=== PATIENT | male | born 1960 | race Caucasian/White ===

== ENCOUNTER → 2017-01-27 | Outpatient (CLI) | payer OTHER ==
--- NOTE | 2017-01-27 14:09 | DIAGNOSTIC IMAGING REPORT ---
CERVICAL SPINE 2 OR 3 VIEWS HISTORY: 56 years-old Male follow-up status post anterior fusion COMPARISON: None available TECHNIQUE: 2 views of the cervical spine FINDINGS: Anterior plate and screw fusion hardware noted at the C5-C7 levels. There is no evidence of hardware complication or malalignment. There appears to be complete bony fusion of these vertebral bodies. There is no acute fracture or dislocation. Moderate intervertebral disc space narrowing with endplate spurring noted at C4-C5. Mild to moderate multilevel facet arthropathy is noted. There is no prevertebral soft tissue swelling or opaque foreign body. Imaged lung apices appear clear. Metallic plate is noted overlying the left posterior calvarium. IMPRESSION: 1. No acute bony abnormality. 2. Anterior plate and screw fusion at C5-C7 without complication. 3. Moderate intervertebral disc space narrowing with endplate spurring at C4-C5. The above report was generated using voice recognition software. It may contain grammatical, syntax or spelling errors. Electronically signed by: Bronson Hunter M.D. 01/27/2017 2:08 PM Dictated Date/Time: 01/27/2017 2:05 PM
== END ==
LOC: C.RAD 13:24
PROVIDERS: ATTEND Nurse Practitioner Adult Health
DX: M47.22 Other spondylosis with radiculopathy, cervical region (principal); Z98.1 Arthrodesis status

== ENCOUNTER 2020-06-09 15:25 | Inpatient (IN) ==
[2020-06-09] MEDS ORDERED: dilTIAZem HCl 5 MG/ML 5 ML VIAL IV STA (15:42)
[2020-06-09] MEDS ORDERED: MAGNESIUM SULFATE / D5W 1 GM/100 ML BAG IV STA (15:43)
[2020-06-09] MEDS ORDERED: THIAMINE HCL 200 MG in SODIUM CHLORIDE 0.9% 50 ML IV STA (15:44)
[2020-06-09] MEDS ORDERED: SODIUM CHLORIDE 0.9% 500 ML IV SCH (15:45)
--- NOTE | 2020-06-09 15:46 | Emergency Department Note ---
Impression & Plan Atrial fibrillation with rapid ventricular response, Heart palpitations, Anemia ED Provider Note NAME: JOHNATHAN ROBERSON AGE: 60 SEX: M : 1960 ARRIVES VIA: Walk-In INFORMANT: Patient, ED PROVIDER(S): Isidro Almaguer DO CHIEF COMPLAINT: Palpitations HPI: The patient is a 60-year-old male who has a history of paroxysmal atrial fibrillation who presented to the emergency department for an evaluation of palpitations. The patient had palpitations once a few years ago. He was found to have atrial fibrillation. At that time he was cardioverted and did very well. He is not currently on any blood thinners. The patient has been having symptoms over the course of the last few weeks where he is very short of breath with exertion. He also has been noticing some lower extremity edema as well as palpitations. He went to see his primary care physician today for an evaluation and was found to be in atrial fibrillation. He was referred to the emergency department. He states symptoms are worsened with exertion as well as lying flat. He does note some improvement of his symptoms with rest. He denies having any recent traveling. He denies having any black or bloody bowel movements. Patient does have a history of chronic alcohol use. ROS: See above HPI for pertinent positives & negatives. A total of 10 systems reviewed and were otherwise negative. PAST MEDICAL HISTORY: See Below PAST SURGICAL HISTORY: See Below FAMILY HISTORY: See Below SOCIAL HISTORY: See Below HOME MEDICATIONS: See Below ALLERGIES: See Below VITALS: See Below PHYSICAL EXAMINATION: GENERAL: Patient is awake alert in no acute distress patient is resting comfortably and showing no signs of anxiety EYES: The conjunctivae are clear. The pupils are round and reactive. EARS, NOSE, MOUTH AND THROAT: The nose is without any evidence of any deformity. Mucous membranes are moist. Tongue is midline. NECK: The neck is nontender and supple. RESPIRATORY: Normal respiratory effort is noted there is no evidence of wheezing rhonchi or rales CARDIOVASCULAR: Tachycardic and irregular heart sounds were noted to auscul tation. No definite murmur was noted. GASTROINTESTINAL: The abdomen is soft. Abdomen is nontender. MUSCULOSKELETAL/EXTREMITIES: There is no evidence of gross deformity full range of motion is noted in the hips and shoulders. SKIN: Trace pedal edema was noted. Skin was cool and diaphoretic. NEUROLOGIC: Patient is awake alert and oriented x3. MEDICAL DECISION MAKING: The patient is a 60-year-old male who has a history of paroxysmal atrial fibrillation as well as chronic alcohol use who presented to the emergency department for palpitations. He was seen his primary care physician's office and diagnosed with atrial fibrillation. He was treated with IV fluids and IV Cardizem in the emergency department. The heart rate significantly improved as well as the patient's symptoms. He is currently not taking blood thinners as he is only had one episode of atrial fibrillation in the past. I discussed the patient's condition with the on-call [facility] hospitalist group. They have agreed to evaluate the patient in the emergency department for further management and disposition. The patient was agreeable to this plan. Triage Nursing notes reviewed. Prior medical records reviewed Vital Signs: reviewed and remarkable for tachycardia. Differential diagnosis: Premature contractions, electrolyte abnormality, cardiac dysrhythmia, thyroid dysfunction, pulmonary embolism, infection, gastrointestinal, as well as other pathologies. ER treatment provided: See below Diagnostics interpreted by me: ECG: EKG was obtained in the emergency department. Interpretation is atrial fibrillation at 81 bpm. There were no PVCs noted. Peak T waves were noted. No previous tracing was available for comparison. Cardiac Monitoring: An order was placed for continuous cardiac monitoring. The monitor shows a rate of 89 bpm with atrial fibrillation rhythm. Laboratory studies: As stated above and show below. Imaging studies: See below Consultation(s): 1755: I discussed this case with the [facility] Hospitalist group. They have agreed to evaluate the patient in the emergency department for further management and disposition. Past Med/Surg History Medical History ASD (atrial septal defect) Asthma Atrial fibrillation Chronic sinusitis DDD (degenerative disc disease) Fibromyalgia Hypertension Post laminectomy syndrome Surgical History History of fusion of cervical spine History of laminectomy History of lumbar fusion 2002, l3-l5 fusion @ [facility] 2004; revision l1-s1 2016; L5-S1 hardware removal and lami 06/2017, History of sinus surgery Hx of tonsillectomy Family History Father Myocardial infarction, Onset Age: 70 Mother Myocardial infarction, Onset Age: 78 Social History (Updated 06/09/20 @ 15:44 by Isidro Almaguer DO) Smoking Status: Former smoker Hx Alcohol Use: Yes Alcohol type: beer and hard liquor Alcohol Intake Frequenc y: 4 or More x per/Week Preferred Language: Pashto Feels Safe at Home: Yes Allergies Allergies Allergy/AdvReac Type Severity Reaction Status Date / Time adhesive tape Allergy Unknown Rash/Bliste Verified 06/09/20 17:38 rs atorvastatin AdvReac Unknown Cramping/We Verified 06/09/20 17:38 akness heparin AdvReac Unknown Hypotension Verified 06/09/20 17:38 Home Meds Home Medications Medication Instructions Recorded Confirmed albuterol sulfate 2 puff INHALATION Q6H PRN 06/09/20 06/09/20 betamethasone dipropionate 1 applic TOPICAL BID PRN 06/09/20 06/09/20 budesonide 0.5 mg IRRIGATION DAILY 06/09/20 06/09/20 esomeprazole magnesium 20 mg PO DAILY 06/09/20 06/09/20 levofloxacin 500 mg PO DAILY 06/09/20 06/09/20 lidocaine 3 patch TOPICAL DIRECTED 06/09/20 06/09/20 lisinopril 10 mg PO QAM 06/09/20 06/09/20 metoprolol tartrate 12.5 mg PO QAM 06/09/20 06/09/20 metronidazole [Metrogel] 1 applic TOPICAL BID PRN 06/09/20 06/09/20 milnacipran [Savella] 100 mg PO HS 06/09/20 06/09/20 [id number] 1 tab PO QAM 06/09/20 06/09/20 [Multivitamin 50 Plus] olopatadine 1 drp OPB BID 06/09/20 06/09/20 omega-3 fatty acids [Fish Oil] 1,000 mg PO QPM 06/09/20 06/09/20 oxycodone 15 mg PO Q4H PRN 06/09/20 06/09/20 prednisone See Rx Instructions .ROUTE .COMPLEX 06/09/20 06/09/20 pregabalin [Lyrica] 150 mg PO DAILY 06/09/20 06/09/20 pregabalin [Lyrica] 300 mg PO PM 06/09/20 06/09/20 Results & Data (ED) Vital Signs Vital Signs - 24 hr 06/09/20 15:31 06/09/20 16:03 06/09/20 16:09 Temperature 36.5 C Temperature Source Oral Pulse Rate 75 Pulse Rate [Apical] 104 H Pulse Rhythm Regular Pulse Strength Normal Respiratory Rate 16 16 Respiratory Effort / Characteristics Non-Labored Non-Labored Respiratory Depth Normal Normal Respiratory Pattern Regular Regular Blood Pressure 184/82 H Blood Pressure [Right Arm] 133/81 Blood Pressure Mean 116 Blood Pressure Mean [Right Arm] 98 Blood Pressure Position Sitting Blood Pressure Position [Right Arm] Lying Pulse Oximetry 100 98 98 Oxygen Delivery Method Room Air Room Air Room Air Sepsis Recent Fever Within 48 Hours No Sepsis New/Unexplained Change in Mental Status N/A Sepsis Action Taken by Nursing No Action Required Home Medications Current Medication List: was personally reviewed by me Laboratory Data Attestation: I reviewed the patient's lab results. Result diagrams: 06/09/20 15:50 06/09/20 15:50 Lab Results 06/09/20 06/09/20 06/09/20 Range/Units 15:50 15:50 15:50 WBC 9.65 (4.8-10.8) K/uL RBC 4.67 L (4.7-6.1) M/uL Hgb 9.8 L (14.0-18.0) g/dL Hct 32.5 L (42-52) % MCV 69.6 L (80-100) fL MCH 21.0 L (25-34) pg MCHC 30.2 L (32-36) g/dL RDW Std Deviation 49.3 H (36.4-46.3) fL RDW Coeff of Stanley 19.6 H (11.5-14.5) % Plt Count 516 H (130-400) K/uL MPV 9.7 (7.4-10.4) fL Immature Gran % (Auto) 0.8 % Neut % (Auto) 89.0 % Lymph % (Auto) 6.7 % [place] % (Auto) 3.4 % Eos % (Auto) 0.0 % Baso % (Auto) 0.1 % Neut # (Auto) 8.58 H (1.4-6.5) K/uL Lymph # (Auto) 0.65 L (1.2-3.4) K/uL [place]hel # (Auto) 0.33 (0.11-0.59) K/uL Eos # (Auto) 0.00 (0-0.5) K/uL Baso # (Auto) 0.01 (0-0.2) K/uL Immature Gran # (Auto) 0.08 H (0.00-0.02) K/uL Microcytosis Present Ovalocytes 1+ PT 11.5 (9.0-12.0) Seconds INR 1.1 (0.9-1.1) APTT 27.9 (21.0-31.0) Seconds PTT Ratio 1.0 Sodium 134 L (136-145) mmol/L Potassium 4.4 (3.5-5.1) mmol/L Chloride 101 (98-107) mmol/L Carbon Dioxide 28 (21-32) mmol/L Anion Gap 5.0 (3-11) BUN 19 H (7-18) mg/dl Creatinine 0.81 (0.6-1.4) mg/dl Est Cr Clr Drug Dosing 104.0 ml/min Est GFR ( Amer) 111.2 Est GFR (Non-Af Amer) 95.9 BUN/Creatinine Ratio 23.5 H (10-20) Glucose 141 H (70-99) mg/dl Calcium 9.6 (8.5-10.1) mg/dl Magnesium 2.2 (1.8-2.4) mg/dl Total Bilirubin 0.2 (0.2-1) mg/dl AST 23 (15-37) U/L ALT 28 (12-78) U/L Alkaline Phosphatase 140 H (45-117) U/L Troponin I < 0.015 (0-0.045) ng/ml Total Protein 8.4 H (6.4-8.2) gm/dl Albumin 3.1 L (3.4-5.0) gm/dl Globulin 5.3 H (2.5-4.0) gm/dl Albumin/Globulin Ratio 0.6 L (0.9-2) TSH 0.166 L (0.300-4.500) uIu/ml Free T4 1.09 (0.8-1.6) ng/dl Urine Color Urine Appearance (Clear) Urine pH (4.5-7.5) Ur Specific [place] (1.000-1.030) Urine Protein (Negative) Urine Glucose (UA) (Negative) Urine Ketones (Negative) Urine Blood (Negative) Urine Nitrite (Negative) Urine Bilirubin (Negative) Urine Urobilinogen (Negative) Ur Leukocyte Esterase (Negative) COVID-19 Eval Order SARS-CoV-2, RNA, NAAT (NEGATIVE) 06/09/20 06/09/20 06/09/20 Range/Units 16:08 16:08 16:37 WBC (4.8-10.8) K/uL RBC (4.7-6.1) M/uL Hgb (14.0-18.0) g/dL Hct (42-52) % MCV (80-100) fL MCH (25-34) pg MCHC (32-36) g/dL RDW Std Deviation (36.4-46.3) fL RDW Coeff of Stanley (11.5-14.5) % Plt Count (130-400) K/uL MPV (7.4-10.4) fL Immature Gran % (Auto) % Neut % (Auto) % Lymph % (Auto) % [place] % (Auto) % Eos % (Auto) % Baso % (Auto) % Neut # (Auto) (1.4-6.5) K/uL Lymph # (Auto) (1.2-3.4) K/uL Bethel # (Auto) (0.11-0.59) K/uL Eos # (Auto) (0-0.5) K/uL Baso # (Auto) (0-0.2) K/uL Immature Gran # (Auto) (0.00-0.02) K/uL Microcytosis Ovalocytes PT (9.0-12.0) Seconds INR (0.9-1.1) APTT (21.0-31.0) Seconds PTT Ratio Sodium (136-145) mmol/L Potassium (3.5-5.1) mmol/L Chloride (98-107) mmol/L Carbon Dioxide (21-32) mmol/L Anion Gap (3-11) BUN (7-18) mg/dl Creatinine (0.6-1.4) mg/dl Est Cr Clr Drug Dosing ml/min Est GFR ( Amer) Est GFR (Non-Af Amer) BUN/Creatinine Ratio (10-20) Glucose (70-99) mg/dl Calcium (8.5-10.1) mg/dl Magnesium (1.8-2.4) mg/dl Total Bilirubin (0.2-1) mg/dl AST (15-37) U/L ALT (12-78) U/L Alkaline Phosphatase (45-117) U/L Troponin I (0-0.045) ng/ml Total Protein (6.4-8.2) gm/dl Albumin (3.4-5.0) gm/dl Globulin (2.5-4.0) gm/dl Albumin/Globulin Ratio (0.9-2) TSH (0.300-4.500) uIu/ml Free T4 (0.8-1.6) ng/dl Urine Color Yellow Urine Appearance Clear (Clear) Urine pH 5.5 (4.5-7.5) Ur Specific [place] 1.014 (1.000-1.030) Urine Protein Negative (Negative) Urine Glucose (UA) Negative (Negative) Urine Ketones Negative (Negative) Urine Blood Negative (Negative) Urine Nitrite Negative (Negative) Urine Bilirubin Negative (Negative) Urine Urobilinogen Negative (Negative) Ur Leukocyte Esterase Negative (Negative) COVID-19 Eval Order Covid19 IDNow [facility] SARS-CoV-2, RNA, NAAT NEGATIVE (NEGATIVE) Administered Medications Discontinued Medications Diltiazem HCl (Diltiazem Hcl 5 Mg/Ml 5 Ml Vial) 10 mg IV NOW STA Stop: 06/09/20 15:43 Last Admin: 06/09/20 15:56 Dose: 10 mg Documented by: [id number] Cosigned by: [id number] Sodium Chloride (Nss) 500 mls @ 999 mls/hr IV .Q31M TEZ Stop: 06/09/20 16:15 Last Admin: 06/09/20 15:57 Dose: 999 mls/hr Documented by: [id number] Magnesium Sulfate/Dextrose (Magnesium Sulfate / D5w) 1 gm in 100 mls @ 100 mls/hr IV NOW STA Stop: 06/09/20 16:42 Last Admin: 06/09/20 15:57 Dose: 100 mls/hr Documented by: [id number] Thiamine HCl 200 mg/ Sodium (Chloride) 52 mls @ 208 mls/hr IV NOW STA Stop: 06/09/20 15:58 Last Admin: 06/09/20 15:57 Dose: 208 mls/hr Documented by: [id number] Imaging Data Radiologist's Impression: Patient: JOHNATHAN ROBERSON Admit Date: 06/09/20 MR#: [id number] Address1: [address] [place] [address] Acct ID:[id number] Address2: Date: 1960 [facility] Zip: [place] [address] Age: 60 Location: ED Sex: M Room/Bed: Att Phy: Diagnosis: ATRIAL FLUTTER Lucia Phy: Johnathan Street MD Service Date: 06/09/20 Fam Phy: Interpreting Phy: Bal Hernandez MD Admit Phy: Ordering Phy: Isidro Almaguer, DO cc: ~ XR chest 1V portable HISTORY: weakness COMPARISON: None. FINDINGS: No pneumothorax. No pleural effusions. The cardiac silhouette is top normal in size. Thoracolumbar spine and cervical spinal fusion hardware is noted. Hazy appearance to the left upper to midlung zone and right lung base. This may represent a viral pneumonitis. There is mild interstitial thickening. IMPRESSION: Mild hazy appearance to the left upper to midlung zone and right lung base. This may represent a viral pneumonitis. ACT 112: Negative or not required by law. Electronically signed by: Bal Hernandez M.D. 06/09/2020 4:34 PM Dictated: 06/09/20 1633 Transcribed: 06/09/20 1633 Blood Pressure Blood Pressure Findings: Normal blood pressure Discharge Plan Visit Data Chief Complaint: Arrhythmia/Palpitations Stated Complaint: ATRIAL FLUTTER ED Provider: Isidro Almaguer Discharge Problem: Atrial fibrillation with rapid ventricular response, Heart palpitations, Anemia Forms Stand Alone Forms: My [employer] Prescriptions Prescriptions: No Action prednisone 20 mg tablet See Rx Instructions .ROUTE .COMPLEX RF: 0 oxycodone 15 mg tablet 15 mg PO Q4H PRN (Reason: Pain) RF: 0 levofloxacin 500 mg tablet 500 mg PO DAILY RF: 0 metoprolol tartrate 25 mg tablet 12.5 mg PO QAM RF: 0 pregabalin [Lyrica] 150 mg capsule 150 mg PO DAILY RF: 0 Savella 50 mg tablet 100 mg PO HS RF: 0 lisinopril 20 mg tablet 10 mg PO QAM RF: 0 olopatadine 0.1 % drops 1 drp OPB BID RF: 0 lidocaine 5 % adhesive patch,medicated 3 patch topical DIRECTED RF: 0 budesonide 0.5 mg/2 mL suspension for nebulization 0.5 mg irrigation DAILY RF: 0 betamethasone dipropionate 0.05 % cream 1 applic TOPICAL BID PRN (Reason: Rosacea) RF: 0 albuterol sulfate 90 mcg/actuation HFA aerosol inhaler 2 puff INHALATION Q6H PRN (Reason: Cough/Wheezing) RF: 0 metronidazole [Metrogel] 0.75 % Gel 1 applic TOPICAL BID PRN (Reason: Rosacea) RF: 0 Multivitamin 50 Plus Tablet 1 tab PO QAM RF: 0 Fish Oil Capsule 1,000 mg PO QPM RF: 0 esomeprazole magnesium [address] For Susp In Packet 20 mg PO DAILY RF: 0 pregabalin [Lyrica] 150 mg Capsule 300 mg PO PM RF: 0 Referrals Referrals: Johnathan Street MD [Primary Care Provider] -
[2020-06-09 16:06] LABS: Basophils # (auto) 0.01 K/uL (0-0.2); Basophils % (auto) 0.1 %; Hematocrit (blood only) 32.5 % (42-52); Hemoglobin 9.8 g/dL (14.0-18.0); Immature Granulocytes # (auto) 0.08 K/uL (0.00-0.02); Immature Granulocytes % (auto) 0.8 %; Lymphocytes # (auto) 0.65 K/uL (1.2-3.4); Lymphocytes % (auto) 6.7 %; Mean Corpuscular Hgb Conc 30.2 g/dL (32-36); Mean Corpuscular Volume 69.6 fL (80-100); Mean Platelet Volume 9.7 fL (7.4-10.4); Monocytes # (auto) 0.33 K/uL (0.11-0.59); Monocytes % (auto) 3.4 %; Neutrophils # (auto) 8.58 K/uL (1.4-6.5); Platelet Count 516 K/uL (130-400); RDW Coefficient of Variation 19.6 % (11.5-14.5); RDW Standard Deviation 49.3 fL (36.4-46.3); Red Blood Count 4.67 M/uL (4.7-6.1); White Blood Count 9.65 K/uL (4.8-10.8)
[2020-06-09 16:27] LABS: INR 1.1 (0.9-1.1); Partial Thromboplastin Time 27.9 Seconds (21.0-31.0); Prothrombin Time 11.5 Seconds (9.0-12.0)
[2020-06-09 16:31] LABS: Microcytosis Present; Ovalocytes 1+
[2020-06-09 16:34] LABS: Alanine Aminotransferase 28 U/L (12-78); Albumin Level 3.1 gm/dl (3.4-5.0); Aspartate Aminotransferase 23 U/L (15-37); BUN Creatinine Ratio 23.5 (10-20); Blood Urea Nitrogen 19 mg/dl (7-18); Calcium 9.6 mg/dl (8.5-10.1); Carbon Dioxide 28 mmol/L (21-32); Chloride 101 mmol/L (98-107); Est GFR (African American) 111.2; Est GFR (Non-African American) 95.9; Glucose 141 mg/dl (70-99); Magnesium 2.2 mg/dl (1.8-2.4); Potassium 4.4 mmol/L (3.5-5.1); Sodium 134 mmol/L (136-145)
--- NOTE | 2020-06-09 16:34 | Electrocardiogram Report ---
Test Reason : Blood Pressure : / mmHG Vent. Rate : 081 BPM Atrial Rate : 375 BPM P-R Int : 000 ms QRS Dur : 088 ms QT Int : 324 ms P-R-T Axes : 000 083 006 degrees QTc Int : 376 ms Poor data quality, interpretation may be adversely affected Probable Sinus rhythm (regular rhythm with baseline artifact) Abnormal ECG No previous ECGs available Repeat tracing recommended Confirmed by Diaz Garcia ([id number]) on 06/09/2020 4:33:50 PM Referred By: Confirmed By:Diaz Garcia
--- NOTE | 2020-06-09 16:35 | XRay Report ---
XR chest 1V portable HISTORY: weakness COMPARISON: None. FINDINGS: No pneumothorax. No pleural effusions. The cardiac silhouette is top normal in size. Thorac olumbar spine and cervical spinal fusion hardware is noted. Hazy appearance to the left upper to midl ed zone and right lung base. This may represent a viral pneumonitis. There is mild interstitial thic kening. IMPRESSION: Mild hazy appearance to the left upper to midlung zone and right lung base. This may represent a jyoti l pneumonitis. ACT 112: Negative or not required by law. Electronically signed by: Bal Hernandez M.D. 06/09/2020 4:34 PM
[2020-06-09 16:45] LABS: Albumin Globulin Ratio 0.6 (0.9-2); Alkaline Phosphatase 140 U/L (45-117); Bilirubin,Total 0.2 mg/dl (0.2-1); Globulin 5.3 gm/dl (2.5-4.0); Thyroid Stimulating Hormone 0.166 uIu/ml (0.300-4.500); Total Protein 8.4 gm/dl (6.4-8.2); Troponin I < 0.015 ng/ml (0-0.045)
[2020-06-09 17:00] LABS: T4 Free Thyroxine 1.09 ng/dl (0.8-1.6)
[2020-06-09 17:02] LABS: Appearance Urine Clear (Clear); Bilirubin Urine Negative (Negative); Blood Urine Negative (Negative); Color Urine Yellow; Glucose Urine UA Negative (Negative); Ketones Urine Negative (Negative); Leukocyte Esterase Urine Negative (Negative); Nitrite Urine Negative (Negative); Protein Urine Negative (Negative); Specific Gravity Urine 1.014 (1.000-1.030); Urobilinogen Urine Negative (Negative); pH Urine 5.5 (4.5-7.5)
--- NOTE | 2020-06-09 17:54 | History & Physical Report ---
Date of Service June 09, 2020 Assessment & Plan (1) Atrial fibrillation with rapid ventricular response: (2) Anemia: (3) Hypertension: (4) Alcohol abuse: (5) Recurrent sinusitis: (6) DVT prophylaxis: This is a 60-year-old male who has significant past medical history of HTN, ASD, asthma, fibromyalgia, post laminectomy syndrome, history of A. fib 10 years prior requiring DCCV and anticoagulation x1 year, recurrent sinusitis who presents to ED secondary to dyspnea on exertion x3 weeks. In ED patient was found to be in atrial fibrillation. He received 10 mg of IV diltiazem with improvement in heart rate. During my evaluation he was mostly in the 80s to 90s -and actually sinus rhythm; however he did have approximately 10 to 20 seconds of atrial fibrillation in the 120s.He is going in an out of afib. Evaluation reveals a microcytic hypochromic anemia with an H&H of 9.8 and 32.5. He denies any signs or symptoms of bleeding. Prior hemoglobin in 2019 was 14.1. He does have significant history of alcoholism with 5 alcoholic beverages daily. Also has been suffering from recurrent sinusitis since February. He has been on 3 different antibiotics and is currently on Levaquin and an additional prednisone taper. Lastly TSH is mildly low at 0.166 but normal free T4 1.09 Chest x-ray abnormal showing hazy bilateral opacities. He has had 3 - Covid test. Patient has multiple possibilities for PAF including recurrent sinusitis with multiple antibiotic and prednisone therapies, alcohol abuse, hyperthyroid and questionable lung opacities Admit to PCU increase metoprolol tartrate to 12.5 mg 3 times daily Start IV heparin gtt given acuity of afib- chadsvasc0 obtain echocardiogram, consult cardiology obtain CT Chest and CT sinus continue levaquin and prednisone to complete current course - await CT sinus but pt will need outpt ENT referral Anemia work up - iron, ferritin, TIBC, tsat, b12, folic acid - last cscope 07/2019 - internal hemorrhoids AWSS protocol, prn IV ativan, monitor for s/sx of withdrawal will keep pt under covid isolation despite negative test given URI sx and ? hazy opacity on xray - await further testing, no known + covid contacts Full CODE Follow up Dr. Street up on discharge Pt was seen and examined in collaboration with Dr. Nuñez, please see addendum History of Present Illness Chief Complaint: ALMEIDA x 3 weeks. Primary Care Provider: Johnathan Street MD This is a 60-year-old male who has significant past medical history of HTN, ASD, asthma, fibromyalgia, post laminectomy syndrome, history of A. fib 10 years prior requiring DCCV and anticoagulation x1 year, recurrent sinusitis who presents to ED secondary to dyspnea on exertion x3 weeks. Of significance patient has been suffering from recurrent sinusitis since early February. He has been on multiple antibiotics including Levaquin x2 and Biaxin. He is currently on his second course of Levaquin day 2. He is also on his second round of prednisone. He complains of recurrent sinus congestion with purulent drainage with occasional scant blood, facial pain and pressure, postnasal drip, occasional cough secondary to drainage and ALMEIDA. Initially he attributed shortness of breath to nasal drainage. Shortness of breath started right around [place] when he would exert himself specifically with stairs. He would like himself extremely short of breath. He has been monitoring his heart rate and oxygen at home and noticed his oxygen to be low 90s and heart rate at times in 150s. He has been Covid screen x2 as outpatient which was negative. He denies any fever, chills, sweats, lightheadedness, dizziness, syncope, chest pain, palpitations, nausea, vomiting, abdominal pain, melena, hematochezia, diarrhea, dysuria, increased urgency or frequency with urination. He is not established with a pneumatic riveter in the area. He follows with cardiology down near [place]. He states he has not had a recurrence of atrial fibrillation therefore did not feel the need. Of significance he does suffer from alcoholism. He drinks 2 [place] mules and 3 light beers daily. He was seen and evaluated in clinic today for follow-up regarding shortness of breath and sinusitis. His heart rhythm was found to be irregular and he was referred to ED. Allergies Allergy/AdvReac Type Severity Reaction Status Date / Time adhesive tape Allergy Unknown Rash/Bliste Verified 06/09/20 17:38 rs atorvastatin AdvReac Unknown Cramping/We Verified 06/09/20 17:38 akness heparin AdvReac Unknown Hypotension Verified 06/09/20 17:38 Home Medications Medication Instructions Recorded Confirmed Type albuterol sulfate 2 puff INHALATION Q6H PRN 06/09/20 06/09/20 History betamethasone dipropionate 1 applic TOPICAL BID PRN 06/09/20 06/09/20 History budesonide 0.5 mg IRRIGATION DAILY 06/09/20 06/09/20 History esomeprazole magnesium 20 mg PO DAILY 06/09/20 06/09/20 History levofloxacin 500 mg PO DAILY 06/09/20 06/09/20 History lidocaine 3 patch TOPICAL DIRECTED 06/09/20 06/09/20 History lisinopril 10 mg PO QAM 06/09/20 06/09/20 History metoprolol tartrate 12.5 mg PO QAM 06/09/20 06/09/20 History metronidazole [Metrogel] 1 applic TOPICAL BID PRN 06/09/20 06/09/20 History milnacipran [Savella] 100 mg PO HS 06/09/20 06/09/20 History stjekbkbeiuh-tsyttuaz-fxuwua 1 tab PO QAM 06/09/20 06/09/20 History [Multivitamin 50 Plus] olopatadine 1 drp OPB BID 06/09/20 06/09/20 History omega-3 fatty acids [Fish Oil] 1,000 mg PO QPM 06/09/20 06/09/20 History oxycodone 15 mg PO Q4H PRN 06/09/20 06/09/20 History prednisone See Rx Instructions .ROUTE .COMPLEX 06/09/20 06/09/20 History pregabalin [Lyrica] 150 mg PO DAILY 06/09/20 06/09/20 History pregabalin [Lyrica] 300 mg PO PM 06/09/20 06/09/20 History Past Med/Surg History Medical History ASD (atrial septal defect) Asthma Atrial fibrillation Chronic sinusitis DDD (degenerative disc disease) Fibromyalgia Hypertension Post laminectomy syndrome Surgical History History of fusion of cervical spine History of laminectomy History of lumbar fusion 2002, l3-l5 fusion @ [facility] 2004; revision l1-s1 2016; L5-S1 hardware removal and lami 06/2017, History of sinus surgery Hx of tonsillectomy Family History Father Myocardial infarction, Onset Age: 70 Mother Myocardial infarction, Onset Age: 78 Social History (Updated 06/09/20 @ 18:57 by Vera Mast PA-C) Smoking Status: Former smoker Do You Dip or Chew Tobacco: No; Hx Alcohol Use: Yes Alcohol type: beer and hard liquor Alcohol Intake Frequency: 4 or More x per/Week Alcohol Intake Frequency Comment: daily alcohol consumption Hx Substance Use: No Preferred Language: Dominican Communication Ability: Effective Beliefs That Will Affect Care: None marital status: Current Living Situation: Spouse Feels Safe at Home: Yes Assistive Devices: Glasses Review of Systems Review of Systems: All systems reviewed & are unremarkable except as noted in HPI & below Physical Exam Physical Exam: Constitutional: WD/WN, vitals as above, NAD, sitting up in bed, pleasant, conversing easily Head: Normocephalic, Atraumatic Eyes: PERRL, conjunctivae normal, anicteric sclerae ENMT: external ear and nose normal, oropharynx normal Neck: trachea midline, no thyromegaly normal visual inspection Respiratory: normal respiratory effort, lungs clear to auscultation, no wheeze, rales, rhonchi. Normal insp/exp effort, no accessory muscle use Cardiovascular: RRR, no murmur, no edema Vessels: no JVD or carotid bruit Chest: normal inspection of chest Abdomen: normal bowel sounds, soft, nontender, no hepatosplenomegaly Musculoskeletal: no cyanosis or clubbing, extremities motor strength 5/5 Skin: no rashes, warm and dry normal turgor Neurologic: PERRL, EOMI, accommodation nl, no face palsy, no dysarthria CN's II-XI intact bilaterally and moves all extremities Psychiatric: A+Ox3, euthymic affect Lymphatic: no cervical or axillary lymphadenopathy : deferred Results & Data Results & Data ([facility]) Vital Signs (Past 12 Hours) Vital Signs Temp Pulse Pulse Resp BP BP Pulse Ox 06/09/20 16:09 104 H 16 133/81 98 06/09/20 16:03 98 06/09/20 15:31 36.5 C 75 16 184/82 H 100 Laboratory Results Short CBC 06/09/20 Range/Units 15:50 WBC 9.65 (4.8-10.8) K/uL Hgb 9.8 L (14.0-18.0) g/dL Hct 32.5 L (42-52) % Plt Count 516 H (130-400) K/uL BMP 06/09/20 15:50 Sodium 134 L Potassium 4.4 Chloride 101 Carbon Dioxide 28 BUN 19 H Creatinine 0.81 Glucose 141 H Calcium 9.6 Cardiac Enzymes 06/09/20 Range/Units 15:50 Troponin I < 0.015 (0-0.045) ng/ml Liver Function 06/09/20 Range/Units 15:50 Total Bilirubin 0.2 (0.2-1) mg/dl AST 23 (15-37) U/L ALT 28 (12-78) U/L Alkaline Phosphatase 140 H (45-117) U/L Albumin 3.1 L (3.4-5.0) gm/dl Urine 06/09/20 Range/Units 16:37 Urine Color Yellow Urine Appearance Clear (Clear) Urine pH 5.5 (4.5-7.5) Ur Specific Bradley 1.014 (1.000-1.030) Urine Protein Negative (Negative) Urine Glucose (UA) Negative (Negative) Diagnostic Findings CXR: IMPRESSION: Mild hazy appearance to the left upper to midlung zone and right lung base. This may represent a viral pneumonitis. Medications Administered Discontinued Medications Diltiazem HCl (Diltiazem Hcl 5 Mg/Ml 5 Ml Vial) 10 mg IV NOW STA Stop: 06/09/20 15:43 Last Admin: 06/09/20 15:56 Dose: 10 mg Documented by: [id number] Cosigned by: [id number] Sodium Chloride (Nss) 500 mls @ 999 mls/hr IV .Q31M TEZ Stop: 06/09/20 16:15 Last Admin: 06/09/20 15:57 Dose: 999 mls/hr Documented by: [id number] Magnesium Sulfate/Dextrose (Magnesium Sulfate / D5w) 1 gm in 100 mls @ 100 mls/hr IV NOW STA Stop: 06/09/20 16:42 Last Admin: 06/09/20 15:57 Dose: 100 mls/hr Documented by: [id number] Thiamine HCl 200 mg/ Sodium (Chloride) 52 mls @ 208 mls/hr IV NOW STA Stop: 06/09/20 15:58 Last Admin: 06/09/20 15:57 Dose: 208 mls/hr Documented by: [id number] ECG Rate (beats per minute): 81 Rhythm: atrial flutter Code Status & VTE Plan Code Status Full Code VTE Prophylaxis Plan VTE Prophylaxis will be ordered: No Supervising Physician Co-Signing Physician Notes I have seen and examined the patient and have discussed the case with the provider above. I agree with the assessment and plan as stated. The patient is a 60 yo M with a h/o of lone atrial flutter not on anticoagulation with a small ostium secundum ASD not significant on catheterization in 2011 who presents with new onset atrial fibrillation with RVR. He is endorsing two months of worsening dyspnea on exertion consistent with possible atrial fibrillation, however, he also recently reports persistent sinus congestion with purulent drainage with occasional scant blood, facial pain and pressure, postnasal drip, cough and low grade fevers. Chest CT findings are concerning for a pneumonitis or viral pneumonia that is multifocal. He is being admitted during a high activity period of the novel coronavirus pandemic and is being kept on isolation out of an abundance of caution. However, he does report a h/o an aspiration pneumonitis in the past from severe reflux, and he thinks it is possible this may be the case again after eating some spicy food this week. He has not been vomiting and denies any kash episodes of aspiration. Cont Levaquin and prednisone for recent sinus treatment (started two days ago). Rate is improved after diltiazem given in the ER, agree with beta kvng adjustment pending further cardiology recommendations. Heparin drip started. Agree with anemia workup, of note patient is s/p bariatric surgery in Feb 2013. Physical exam is unremarkable aside for an irregular heart rhythm on auscultation, reg rate, S1/2 heard without murmurs, gallops or rubs. Lungs are clear to auscultation. No evidence of edema and he appears euvolemic and is oriented and cooperative. Franny hedrick DO (1) Anemia Anemia type: unspecified type Qualified Code(s): D64.9 - Anemia, unspecified
--- NOTE | 2020-06-09 19:57 | CT Scan Report ---
CT sinus wo con HISTORY: 60 years-old Male recurrent sinusitis chronic sinusitis COMPARISON: Chest CT of same day TECHNIQUE: Multiple axial CT images of the paranasal sinuses were obtained without the use of IV cont rast. A dose lowering technique was used consistent with the principals of BRETT. FINDINGS: Mid and lower cervical spine anterior plate and screw fusion hardware is noted on the straw baler localizer images. No acute intracranial abnormality identified. Encephalomalacia of the left cerebellar hemisp here is noted with craniectomy changes of the left occiput. Unremarkable soft tissues. Orbits are unr emarkable. No acute facial bone or calvarial fracture identified. Mastoid air cells and middle ear ca vities are clear. There is mild mucosal thickening of the frontal sinuses bilaterally. The frontoethmoidal recesses are patent. Prior bilateral maxillary antrostomy with resection of the middle nasal turbinates. Bilatera l maxillary sinus outflow tracts are widely patent. There is minimal mucoperiosteal thickening of the maxillary sinuses. Postoperative changes of partial ethmoidectomy with mild diffuse mucoperiosteal t hickening of the residual ethmoid air cells. Mucosal thickening with aerosolized secretions are noted within a posterior left ethmoid air cell, image 198 series 3. There is mild mucosal thickening of th e nasal septum and left greater than right inferior nasal turbinates. Minimal mucosal thickening of t he sphenoid sinuses with patent sphenoethmoidal recesses. Small right-sided Asif cell. Unremarkable lela shilpi. Patent nasopharynx. IMPRESSION: 1. Postoperative changes of the paranasal sinuses and nasal turbinates as detailed above. 2. Mild paranasal sinus disease with patent sinus outflow tracts. ACT 112: Negative or not required by law. The above report was generated using voice recognition software. It may contain grammatical, syntax o r spelling errors. Electronically signed by: Bronson Hunter M.D. 06/09/2020 7:55 PM
--- NOTE | 2020-06-09 20:06 | CT Scan Report ---
CT chest diagnostic wo con CLINICAL HISTORY: 60 years-old Male with abn cxr. Ill-defined left upper lung pulmonary opacities TECHNIQUE: Multiaxial CT images of the chest were performed without contrast. A dose lowering techni que was utilized adhering to the principles of ALARA. COMPARISON: CT abdomen and pelvis of same day at 4:06 PM FINDINGS: No thyroid nodule. Enlarged AP window lymph node measures 1.4 cm in short axis. Mildly enla rged subcarinal lymph nodes measure up to 11 mm. Calcified left hilar lymph nodes. Heart is mildly en larged. No pericardial effusion or thoracic aortic aneurysm. No pneumothorax or pleural effusion. Lef t greater than right patchy groundglass opacities are noted within all lobes bilaterally with subtle ill-defined intermixed irregular consolidative densities. No overt pulmonary edema, suspicious pulmon amy nodule or mass. Central airways are patent. Postoperative changes of the stomach. Mild mid and distal esophageal wall thickening. Numerous hypode nsities are noted throughout the liver, largest of which suggest cysts measuring up to 9.0 cm. Unrema rkable soft tissues. Posterior interbody mary and screw fusion hardware of the thoracolumbar spine. A stimulator device is noted with distal tip overlying the central canal to level of T9-T10. A tiny flor ear calcification adjacent to the catheter tip is noted. A second catheter is also noted within the c entral canal with distal tip at the level of T10. Partially imaged cervical spinal fusion hardware. IMPRESSION: 1. Left greater than right bilateral irregular groundglass and consolidative opacities are compatible with a multifocal pneumonitis such as viral pneumonia. 2. Mild mediastinal adenopathy, likely reactive. 3. No pleural effusion. 4. Spinal stimulator device is noted with distal tip of one of the catheters overlying the dependent aspect of the central canal at the level of T9-T10. There is a tiny linear calcification adjacent to the catheter tip which may reflect a small calcified granuloma. ACT 112: Negative or not required by law. Electronically signed by: Bronson Hunter M.D. 06/09/2020 8:04 PM
[2020-06-09] MEDS ORDERED: POLYETHYLENE (MIRALAX) 17 GM PACK PO PRN (20:25)
[2020-06-09] MEDS ORDERED: oxyCODONE HCL IR 5 MG TAB (IMMEDIATE RELEASE) PO PRN (20:25)
[2020-06-09] MEDS ORDERED: MAGNESIUM HYDROXIDE SUSP 30 ML UDC PO PRN (20:25)
[2020-06-09] MEDS ORDERED: LORazepam 1 MG/2 ML VIAL IV PRN (20:25)
[2020-06-09] MEDS ORDERED: ACETAMINOPHEN 325 MG TAB PO PRN (20:25)
[2020-06-09] MEDS ORDERED: ALUMINUM/MAGNESIUM SUSP 30 ML UDC PO PRN (20:25)
[2020-06-09] MEDS ORDERED: Heparin IV Standard *NO* Bolus IV SCH (20:25)
[2020-06-09] MEDS ORDERED: ONDANSETRON INJ 2 MG/ML 2 ML VIAL IV PRN (20:25)
[2020-06-09] MEDS ORDERED: ALBUTEROL HFA 8 GM INHALER INH PRN (20:25)
[2020-06-09] MEDS ORDERED: HEPARIN 25000 UNIT/500 ML D5W IV ONE (20:43)
[2020-06-09] MEDS: FOLIC ACID 1 MG TAB PO SCH (21:34)
[2020-06-09] MEDS: OMEGA-3 (PURIFIED FISH OIL) 1 GM CAP PO SCH (21:34)
[2020-06-09] MEDS: PANTOprazole 40 MG TAB PO SCH (21:35)
[2020-06-09] MEDS: THIAMINE HCL 100 MG TAB PO SCH (21:35)
[2020-06-09] MEDS: PREGABALIN 150 MG CAP PO SCH (21:37)
[2020-06-09] MEDS: METOPROLOL TARTRATE 25 MG TAB PO SCH (21:38)
[2020-06-09] MEDS: HEPARIN SODIUM/DEXTROSE 25,000 UNITS/500 ML BAG IV SCH (21:45)
[2020-06-10 04:04] LABS: Hematocrit (blood only) 27.7 % (42-52); Hemoglobin 8.3 g/dL (14.0-18.0); Mean Corpuscular Hemoglobin 20.6 pg (25-34); Mean Corpuscular Volume 68.9 fL (80-100); Mean Platelet Volume 9.3 fL (7.4-10.4); Nucleated RBC # (auto) 0.04 K/uL (0-0); Nucleated RBC % (auto) 0.4 %; Platelet Count 409 K/uL (130-400); RDW Coefficient of Variation 19.4 % (11.5-14.5); RDW Standard Deviation 48.8 fL (36.4-46.3); Red Blood Count 4.02 M/uL (4.7-6.1); White Blood Count 9.45 K/uL (4.8-10.8)
[2020-06-10 04:19] LABS: Partial Thromboplastin Ratio 1.5; Partial Thromboplastin Time 42.6 Seconds (21.0-31.0)
[2020-06-10 04:21] LABS: BUN Creatinine Ratio 24.9 (10-20); Calcium 8.6 mg/dl (8.5-10.1); Creatinine Clr Calc Pharmacy 135.6 ml/min; Est GFR (African American) 124.1; Est GFR (Non-African American) 107.1; Magnesium 2.4 mg/dl (1.8-2.4); Potassium 3.9 mmol/L (3.5-5.1)
[2020-06-10 04:32] LABS: Thyroid Stimulating Hormone 0.582 uIu/ml (0.300-4.500)
[2020-06-10 06:00] LABS: Folate (Folic Acid) > 20.00 ng/ml (>5.38); Vitamin B12 601 pg/ml (193-986)
[2020-06-10 06:02] LABS: Estimated Average Glucose 140 mg/dl; Hemoglobin A1C 6.5 % (4.5-5.6)
[2020-06-10] MEDS: METOPROLOL TARTRATE 25 MG TAB PO SCH ×3 (08:33→20:08)
[2020-06-10] MEDS: CEROVITE ADV FORMULA TAB PO SCH (08:34)
[2020-06-10] MEDS: PANTOprazole 40 MG TAB PO SCH (08:34)
[2020-06-10] MEDS: FOLIC ACID 1 MG TAB PO SCH (08:34)
[2020-06-10] MEDS: THIAMINE HCL 100 MG TAB PO SCH (08:34)
[2020-06-10] MEDS: lisinopril 10 MG TAB PO SCH (08:34)
[2020-06-10] MEDS: predniSONE 10 MG TABLET PO SCH (08:35)
[2020-06-10] MEDS: levoFLOXacin 500 MG TAB PO SCH (08:35)
[2020-06-10] MEDS: PREGABALIN 150 MG CAP PO SCH ×2 (08:41→20:07)
[2020-06-10] MEDS ORDERED: [UNRECOGNIZED DRUG - REMARK] PO SCH (09:00)
[2020-06-10 10:42] LABS: Basophils # (auto) 0.04 K/uL (0-0.2); Basophils % (auto) 0.3 %; Eosinophils # (auto) 0.07 K/uL (0-0.5); Eosinophils % (auto) 0.6 %; Hematocrit (blood only) 30.4 % (42-52); Hemoglobin 9.1 g/dL (14.0-18.0); Immature Granulocytes # (auto) 0.14 K/uL (0.00-0.02); Immature Granulocytes % (auto) 1.1 %; Lymphocytes # (auto) 2.78 K/uL (1.2-3.4); Lymphocytes % (auto) 22.4 %; Mean Corpuscular Hemoglobin 20.8 pg (25-34); Mean Corpuscular Hgb Conc 29.9 g/dL (32-36); Mean Corpuscular Volume 69.4 fL (80-100); Mean Platelet Volume 9.4 fL (7.4-10.4); Monocytes # (auto) 1.09 K/uL (0.11-0.59); Monocytes % (auto) 8.8 %; Neutrophils % (auto) 66.8 %; Platelet Count 428 K/uL (130-400); RDW Coefficient of Variation 19.6 % (11.5-14.5); RDW Standard Deviation 49.2 fL (36.4-46.3); Red Blood Count 4.38 M/uL (4.7-6.1); White Blood Count 12.42 K/uL (4.8-10.8)
[2020-06-10 10:54] LABS: Partial Thromboplastin Ratio 1.5; Partial Thromboplastin Time 40.7 Seconds (21.0-31.0)
[2020-06-10 11:03] LABS: Hypochromasia Present; Microcytosis Present
[2020-06-10] MEDS: HEPARIN SODIUM/DEXTROSE 25,000 UNITS/500 ML BAG IV SCH (14:35)
--- NOTE | 2020-06-10 17:24 | Hospitalist Progress Note ---
Date of Service June 10, 2020 Assessment & Plan (1) Atrial fibrillation with rapid ventricular response: (2) Anemia: (3) Hypertension: (4) Alcohol abuse: (5) Recurrent sinusitis: (6) DVT prophylaxis: New onset atrial fibrillation with RVR on admission Worsening shortness of breath over the last few months History of atrial flutter not on any anticoagulation requiring cardioversion in the past History of small ostium secundum ASD Patient presents with worsening shortness of breath that has been going on for the last few weeks. Patient denies any chest pain. EKG with atrial fibrillation. Received IV Cardizem in the ED. Patient remains in a sinus rhythm. Cardiology has been consulted and awaiting their recommendations. Continue with metoprolol tartrate 12.5 mg 3 times daily. Currently on heparin infusion. Jin vas score of 0. Transthoracic echo is pending Questionable lung capacity; concerning for Covid History of recurrent sinusitis History of aspiration pneumonitis History of asthma Patient was noted to have bilateral irregular groundglass opacities concerning for multifocal pneumonitis. He have had 3 Covid tests that have been negative. Denies any cough. No recent exposure to anyone who have had cough. Denies any recent travel anywhere. He remains on isolation. We will obtain a CRP and ESR level. Patient does have history of bariatric surgery and reports he has had episodes of aspiration. Likely pneumonitis from that. Patient have had multiple episodes of sinusitis. Currently he is on Levaquin as an outpatient along with prednisone taper. We will continue with that for now. Microcytic anemia Hemoglobin of 9.8 on admission. MCV of 70. Patient is a chronic alcohol drinker. Iron studies are peding. B12 and ferritin levels sufficient. Last colonoscopy on April 2020 with internal hemorrhoids. Alcohol abuse Continue CIWA protocol. Continue with thiamine/folic acid. Newly diagnosed diabetes mellitus type 2? HgA1c of 6.5. Will encourage lifestyle modifications. History of bariatric surgery in February 2013 History of fibromyalgia History of postlaminectomy syndrome Admission and Anticipated Discharge Date Admission Date: June 09, 2020 Subjective Patient reports that he is feeling better today. Reports he has been experiencing shortness of breath since May 14. Denies any cough, chest pain or any palpitations. He has been Covid negative at least 3 times. Drinks alcohol daily. Drink was 2 days ago. Nausea vomiting. Denies any dizziness. Has any abdominal pain, diarrhea or dysuria. Other review of system is negative. Review of Systems Review of Systems: All systems reviewed & are unremarkable except as noted in HPI & below Physical Exam Physical Exam: General: A&Ox3 HENT: NCAT, MMM, EOMI Eyes: PERRLA Neck: Supple, normal range of motion CVS: normal rate and rhythm Resp: b/l rales appreciated Abdomen: Soft, nondistended and nontender Extremities: absence of any edema Neuro: no gross focal deficits appreciated Skin: warm and dry MSK: normal ROM, no joint swelling/erythema Results & Data Results & Data ([facility]) Vital Signs (Past 12 Hours) Vital Signs Temp Pulse Pulse Resp BP BP Pulse Ox 06/10/20 16:57 36.7 C 79 18 131/79 97 06/10/20 11:34 36.7 C 77 18 139/80 94 06/10/20 08:00 51 L 06/10/20 07:49 36.6 C 72 18 132/80 95 Laboratory Results Laboratory Results - last 24 hr 06/10/20 06/10/20 06/10/20 03:51 03:51 03:51 WBC 9.45 RBC 4.02 L Hgb 8.3 L Hct 27.7 L MCV 68.9 L MCH 20.6 L MCHC 30.0 L RDW Std Deviation 48.8 H RDW Coeff of Stanley 19.4 H Plt Count 409 H MPV 9.3 Immature Gran % (Auto) Neut % (Auto) Lymph % (Auto) [place] % (Auto) Eos % (Auto) Baso % (Auto) Neut # (Auto) Lymph # (Auto) [place] # (Auto) Eos # (Auto) Baso # (Auto) Immature Gran # (Auto) Absolute Nucleated RBC 0.04 H Nucleated RBC % (auto) 0.4 Hypochromasia Microcytosis APTT PTT Ratio Sodium 137 Potassium 3.9 Chloride 104 Carbon Dioxide 30 Anion Gap 3.0 BUN 16 Creatinine 0.62 Est Cr Clr Drug Dosing 135.6 Est GFR ( Amer) 124.1 Est GFR (Non-Af Amer) 107.1 BUN/Creatinine Ratio 24.9 H Glucose 131 H Estimat Average Glucose 140 Hemoglobin A1c 6.5 H Calcium 8.6 Magnesium 2.4 Iron 13 L TIBC 318 Transferrin 254 Ferritin 55.0 Vitamin B12 Folate TSH 0.582 Free T4 1.00 06/10/20 06/10/20 06/10/20 03:51 03:51 10:22 WBC RBC Hgb Hct MCV MCH MCHC RDW Std Deviation RDW Coeff of Stanley Plt Count MPV Immature Gran % (Auto) Neut % (Auto) Lymph % (Auto) [place] % (Auto) Eos % (Auto) Baso % (Auto) Neut # (Auto) Lymph # (Auto) [place] # (Auto) Eos # (Auto) Baso # (Auto) Immature Gran # (Auto) Absolute Nucleated RBC Nucleated RBC % (auto) Hypochromasia Microcytosis APTT 42.6 H 40.7 H PTT Ratio 1.5 1.5 Sodium Potassium Chloride Carbon Dioxide Anion Gap BUN Creatinine Est Cr Clr Drug Dosing Est GFR ( Amer) Est GFR (Non-Af Amer) BUN/Creatinine Ratio Glucose Estimat Average Glucose Hemoglobin A1c Calcium Magnesium Iron TIBC Transferrin Ferritin Vitamin B12 601 Folate > 20.00 TSH Free T4 06/10/20 10:22 WBC 12.42 H RBC 4.38 L Hgb 9.1 L Hct 30.4 L MCV 69.4 L MCH 20.8 L MCHC 29.9 L RDW Std Deviation 49.2 H RDW Coeff of Stanley 19.6 H Plt Count 428 H MPV 9.4 Immature Gran % (Auto) 1.1 Neut % (Auto) 66.8 Lymph % (Auto) 22.4 [place] % (Auto) 8.8 Eos % (Auto) 0.6 Baso % (Auto) 0.3 Neut # (Auto) 8.30 H Lymph # (Auto) 2.78 [place] # (Auto) 1.09 H Eos # (Auto) 0.07 Baso # (Auto) 0.04 Immature Gran # (Auto) 0.14 H Absolute Nucleated RBC Nucleated RBC % (auto) Hypochromasia Present Microcytosis Present APTT PTT Ratio Sodium Potassium Chloride Carbon Dioxide Anion Gap BUN Creatinine Est Cr Clr Drug Dosing Est GFR ( Amer) Est GFR (Non-Af Amer) BUN/Creatinine Ratio Glucose Estimat Average Glucose Hemoglobin A1c Calcium Magnesium Iron TIBC Transferrin Ferritin Vitamin B12 Folate TSH Free T4 (1) Anemia Anemia type: unspecified type Qualified Code(s): D64.9 - Anemia, unspecified
[2020-06-10 18:39] LABS: Partial Thromboplastin Ratio 1.5; Partial Thromboplastin Time 42.8 Seconds (21.0-31.0)
[2020-06-10] MEDS: OMEGA-3 (PURIFIED FISH OIL) 1 GM CAP PO SCH (20:09)
[2020-06-11 00:09] LABS: Partial Thromboplastin Ratio 1.9
[2020-06-11 00:19] LABS: Partial Thromboplastin Time 53.3 Seconds (21.0-31.0)
[2020-06-11] MEDS: HEPARIN SODIUM/DEXTROSE 25,000 UNITS/500 ML BAG IV SCH ×4 (05:42→21:25)
[2020-06-11 06:37] LABS: Basophils # (auto) 0.04 K/uL (0-0.2); Basophils % (auto) 0.3 %; Eosinophils # (auto) 0.11 K/uL (0-0.5); Eosinophils % (auto) 0.8 %; Hematocrit (blood only) 29.4 % (42-52); Hemoglobin 8.8 g/dL (14.0-18.0); Immature Granulocytes # (auto) 0.13 K/uL (0.00-0.02); Lymphocytes # (auto) 4.57 K/uL (1.2-3.4); Mean Corpuscular Hemoglobin 20.7 pg (25-34); Mean Corpuscular Hgb Conc 29.9 g/dL (32-36); Mean Platelet Volume 9.1 fL (7.4-10.4); Monocytes # (auto) 1.15 K/uL (0.11-0.59); Monocytes % (auto) 8.8 %; Neutrophils # (auto) 7.06 K/uL (1.4-6.5); Neutrophils % (auto) 54.1 %; Platelet Count 448 K/uL (130-400); RDW Coefficient of Variation 19.6 % (11.5-14.5); Red Blood Count 4.26 M/uL (4.7-6.1); White Blood Count 13.06 K/uL (4.8-10.8)
[2020-06-11 07:00] LABS: Anisocytosis Present; Microcytosis Present; Poikilocytosis Present
[2020-06-11 07:01] LABS: Partial Thromboplastin Time 54.8 Seconds (21.0-31.0)
[2020-06-11 07:08] LABS: BUN Creatinine Ratio 20.6 (10-20); Calcium 9.3 mg/dl (8.5-10.1); Creatinine Clr Calc Pharmacy 131.3 ml/min; Est GFR (African American) 122.5; Est GFR (Non-African American) 105.7; Potassium 3.7 mmol/L (3.5-5.1)
[2020-06-11] MEDS: levoFLOXacin 500 MG TAB PO SCH (08:48)
[2020-06-11] MEDS: predniSONE 10 MG TABLET PO SCH (08:48)
[2020-06-11] MEDS: PANTOprazole 40 MG TAB PO SCH (08:48)
[2020-06-11] MEDS: FOLIC ACID 1 MG TAB PO SCH (08:49)
[2020-06-11] MEDS: lisinopril 10 MG TAB PO SCH (08:49)
[2020-06-11] MEDS: METOPROLOL TARTRATE 25 MG TAB PO SCH ×3 (08:49→20:28)
[2020-06-11] MEDS: THIAMINE HCL 100 MG TAB PO SCH (08:49)
[2020-06-11] MEDS: CEROVITE ADV FORMULA TAB PO SCH (08:49)
[2020-06-11] MEDS: PREGABALIN 150 MG CAP PO SCH ×2 (08:55→20:29)
--- NOTE | 2020-06-11 09:19 | Cardiology Consultation ---
Date of Consultation June 11, 2020 Assessment & Plan (1) Atrial flutter with rapid ventricular response: (2) Recurrent sinusitis: (3) ASD (atrial septal defect): (4) Post laminectomy syndrome: (5) Anemia: It was my pleasure to see Mr. Sandoval in consultation today. The pathophysiology and treatment options for atrial flutter were once again reviewed with him. He states previously he underwent BAN guided cardioversion approximately 10 years ago he has been in sinus ever since. He was previously on Eliquis anticoagulation and has been followed by geotechnical engineering technician outside of [place] for several years now. He recently moved to the area and has not established with cardiology here yet. After lengthy discussion of the treatment options he states he like to proceed with BAN guided cardioversion. The procedure along with the risks and benefits were discussed at great lengths he states that he understands, he is accepting of the risks and wishes to proceed. Baseline transthoracic echocardiogram will be obtained first and then will proceed with BAN guided cardioversion. I anticipate switching to Eliquis for long-term anticoagulation afterwards. We did discuss antiarrhythmic therapy specifically sotalol initiation but he states he would prefer to opt for cardioversion and outpatient follow-up. Further recommendations to follow. History of Present Illness Reason for Consultation: Atrial flutter with variable rate response Requesting Physician: Dr. Marquez Attending Physician: Valeriano Marquez MD History of Present Illness It is my pleasure to see Mr. Sandoval in consultation today June 11, 2020. He is a very pleasant 60-year-old gentleman who presented to [facility] on 06/09/2020 at the advice of his PCP after he is found to be in atrial flutter. He states that prior to presentation for last few days he thought he was coming down with a sinus infection. He felt congested. At the same time he started noticing some palpitations. He states that normally will occur with exertion he states after he climb a set of steps he feels heart pounding faster than normal. He was also having occasional dyspnea with exertion. He states that this is similar to his previous presentation in atrial flutter approximately 10 years ago at [facility] outside of [place]. Upon arrival to the emergency department he was found to be in atrial flutter. Initially there were some concerns for Covid and he was placed in isolation but Covid testing came back negative. He was started on a heparin drip and is remained in atrial flutter approximately 4-1 conduction. Currently states he feels well at rest. He denies any other complaints of chest pain, lightheadedness or dizziness. Allergies Allergy/AdvReac Type Severity Reaction Status Date / Time adhesive tape Allergy Unknown Rash/Bliste Verified 06/09/20 17:38 rs atorvastatin AdvReac Unknown Cramping/We Verified 06/09/20 17:38 akness heparin AdvReac Unknown Hypotension Verified 06/09/20 17:38 Home Medications Medication Instructions Recorded Confirmed Type albuterol sulfate 2 puff INHALATION Q6H PRN 06/09/20 06/09/20 History betamethasone dipropionate 1 applic TOPICAL BID PRN 06/09/20 06/09/20 History budesonide 0.5 mg IRRIGATION DAILY 06/09/20 06/09/20 History esomeprazole magnesium 20 mg PO DAILY 06/09/20 06/09/20 History levofloxacin 500 mg PO DAILY 06/09/20 06/09/20 History lidocaine 3 patch TOPICAL DIRECTED 06/09/20 06/09/20 History lisinopril 10 mg PO QAM 06/09/20 06/09/20 History metoprolol tartrate 12.5 mg PO QAM 06/09/20 06/09/20 History metronidazole [Metrogel] 1 applic TOPICAL BID PRN 06/09/20 06/09/20 History milnacipran [Savella] 100 mg PO HS 06/09/20 06/09/20 History hdproxgaoxrp-asekflix-wqurlz 1 tab PO QAM 06/09/20 06/09/20 History [Multivitamin 50 Plus] olopatadine 1 drp OPB BID 06/09/20 06/09/20 History omega-3 fatty acids [Fish Oil] 1,000 mg PO QPM 06/09/20 06/09/20 History oxycodone 15 mg PO Q4H PRN 06/09/20 06/09/20 History prednisone See Rx Instructions .ROUTE .COMPLEX 06/09/20 06/09/20 History pregabalin [Lyrica] 150 mg PO DAILY 06/09/20 06/09/20 History pregabalin [Lyrica] 300 mg PO PM 06/09/20 06/09/20 History Patient History Medical History ASD (atrial septal defect) Asthma Atrial fibrillation Chronic sinusitis DDD (degenerative disc disease) Fibromyalgia Hypertension Post laminectomy syndrome Surgical History History of fusion of cervical spine History of laminectomy History of lumbar fusion 2002, l3-l5 fusion @ [facility] 2004; revision l1-s1 2016; L5-S1 hardware removal and lami 06/2017, History of sinus surgery Hx of tonsillectomy Family History Father Myocardial infarction, Onset Age: 70 Mother Myocardial infarction, Onset Age: 78 Social History Smoking Status: Former smoker Do You Dip or Chew Tobacco: No; Hx Alcohol Use: Yes Alcohol type: beer and hard liquor Alcohol Intake Frequency: 4 or More x per/Week Alcohol Intake Frequency Comment: daily alcohol consumption Hx Substance Use: No Preferred Language: Comoran Communication Ability: Effective Beliefs That Will Affect Care: None marital status: Current Living Situation: Spouse Feels Safe at Home: Yes Assistive Devices: Glasses Review of Systems Review of Systems: All systems reviewed & are unremarkable except as noted in HPI & below Physical Exam Physical Exam: General: Awake, alert and oriented x 3. No acute distress. HEENT: Normocephalic, atraumatic. Pupils equal, round and reactive to light and accommodation. Extraocular muscles are intact. Anicteric sclera. Moist mucous membranes. Neck: No JVD. No bruit. Cardiovascular: irregularly irregular, unable to appreciate murmur, rub or gallop. Pulmonary: Clear to auscultation bilaterally. No rales, rhonchi, or wheezing. Abdomen: Bowel sounds x 4, soft. No rebound, guarding or tenderness. No organomegaly. Extremities: No clubbing, cyanosis or edema. +2 pedal pulses bilaterally. Skin: Warm and dry. Results & Data ([facility]) Vital Signs (Past 12 Hours) Vital Signs Temp Pulse Pulse Resp BP BP Pulse Ox 06/11/20 08:45 36.7 C 85 18 154/91 H 94 06/11/20 04:46 36.7 C 68 20 134/88 95 06/11/20 04:00 91 H 06/11/20 00:48 36.5 C 84 16 124/80 95 06/10/20 21:23 62 Laboratory Results Laboratory Results - last 24 hr 06/10/20 06/10/20 06/11/20 18:22 23:28 06:22 WBC 13.06 H RBC 4.26 L Hgb 8.8 L Hct 29.4 L MCV 69.0 L MCH 20.7 L MCHC 29.9 L RDW Std Deviation 49.0 H RDW Coeff of Stanley 19.6 H Plt Count 448 H MPV 9.1 Immature Gran % (Auto) 1.0 Neut % (Auto) 54.1 Lymph % (Auto) 35.0 Valley % (Auto) 8.8 Eos % (Auto) 0.8 Baso % (Auto) 0.3 Neut # (Auto) 7.06 H Lymph # (Auto) 4.57 H Valley # (Auto) 1.15 H Eos # (Auto) 0.11 Baso # (Auto) 0.04 Immature Gran # (Auto) 0.13 H Poikilocytosis Present Anisocytosis Present Microcytosis Present APTT 42.8 H 53.3 H* PTT Ratio 1.5 1.9 Sodium Potassium Chloride Carbon Dioxide Anion Gap BUN Creatinine Est Cr Clr Drug Dosing Est GFR ( Amer) Est GFR (Non-Af Amer) BUN/Creatinine Ratio Glucose Calcium 06/11/20 06/11/20 06:22 06:22 WBC RBC Hgb Hct MCV MCH MCHC RDW Std Deviation RDW Coeff of Stanley Plt Count MPV Immature Gran % (Auto) Neut % (Auto) Lymph % (Auto) Valley % (Auto) Eos % (Auto) Baso % (Auto) Neut # (Auto) Lymph # (Auto) Valley # (Auto) Eos # (Auto) Baso # (Auto) Immature Gran # (Auto) Poikilocytosis Anisocytosis Microcytosis APTT 54.8 H* PTT Ratio 2.0 Sodium 139 Potassium 3.7 Chloride 104 Carbon Dioxide 30 Anion Gap 5.0 BUN 13 Creatinine 0.64 Est Cr Clr Drug Dosing 131.3 Est GFR ( Amer) 122.5 Est GFR (Non-Af Amer) 105.7 BUN/Creatinine Ratio 20.6 H Glucose 93 Calcium 9.3 Medications Administered Current Inpatient Medications Acetaminophen (Acetaminophen 325 Mg Tab) 650 mg PO Q4H PRN PRN Reason: Pain or Fever Stop: 07/09/20 20:24 Al Hydrox/Mg Hydrox/Simethicone (Aluminum/Magnesium Susp 30 Ml Udc) 15 ml PO Q4H PRN PRN Reason: Dyspepsia Stop: 07/09/20 20:24 Albuterol (Albuterol Hfa 8 Gm Inhaler) 2 puffs INH Q6H PRN PRN Reason: Cough/Wheezing Stop: 07/09/20 20:24 Amoxicillin/Clavulanate Potassium (Amoxicillin/Clavulanate 875 Mg Tab) 1 tab PO BIDM [facility] Stop: 06/21/20 16:59 Fish Oil ([place]-3 (Purified Fish Oil) 1 Gm Cap) 1 gm PO QPM [facility] Stop: 07/09/20 20:59 Last Admin: 06/10/20 20:09 Dose: 1 gm Documented by: Folic Acid (Folic Acid 1 Mg Tab) [facility] [place] Stop: 07/09/20 20:59 Last Admin: 06/11/20 08:49 Dose: 1 mg Documented by: Heparin Sodium/Dextrose (Heparin Sodium/Dextrose) 25,000 units in 500 mls @ 34 mls/hr IV .[id number] [facility]; Protocol Stop: 07/09/20 20:24 Last Admin: 06/11/20 09:08 Dose: Not Given Documented by: Lorazepam (Ativan) 1 mg in 2 mls @ 2 mls/min IV ONE PRN; Protocol PRN Reason: EtoH Withdrawal AWSS 6-10 Stop: 07/09/20 20:24 Lisinopril (Lisinopril 10 Mg Tab) 10 mg PO QAM [facility] Stop: 07/10/20 08:59 Last Admin: 06/11/20 08:49 Dose: 10 mg Documented by: Magnesium Hydroxide (Magnesium Hydroxide Susp 30 Ml Udc) 30 ml PO Q12H PRN PRN Reason: Constipation Stop: 07/09/20 20:24 Metoprolol Tartrate (Metoprolol Tartrate 25 Mg Tab) 12.5 mg PO TID [facility] Stop: 07/09/20 20:59 Last Admin: 06/11/20 08:49 Dose: 12.5 mg Documented by: Miscellaneous (Milnacipran [Savella] 50 Mg Tablet: Order Awaiting Action) 1 ea N/A QS [facility] Stop: 07/10/20 07:59 Last Admin: 06/11/20 08:48 Dose: Not Given Documented by: Multivitamins/Minerals (Cerovite Adv Formula Tab) [facility] [place] Stop: 07/10/20 08:59 Last Admin: 06/11/20 08:49 Dose: 1 tab Documented by: Ondansetron HCl (Ondansetron Inj 2 Mg/Ml 2 Ml Vial) 4 mg IV Q6H PRN PRN Reason: Nausea Stop: 07/09/20 20:24 Oxycodone HCl (Oxycodone Hcl Ir 5 Mg Tab (Immediate Release)) 15 mg PO Q4H PRN PRN Reason: Pain Stop: 06/23/20 20:24 Pantoprazole Sodium (Pantoprazole 40 Mg Tab) 40 mg PO QAM [facility] Stop: 07/09/20 20:59 Last Admin: 06/11/20 08:48 Dose: 40 mg Documented by: Polyethylene Glycol (Polyethylene (Miralax) 17 Gm Pack) 17 gm PO DAILY PRN PRN Reason: Constipation Stop: 07/09/20 20:24 Prednisone (Prednisone 10 Mg Tablet) 40 mg PO DAILY [facility]; Taper Stop: 06/19/20 08:59 Last Admin: 06/11/20 08:48 Dose: 40 mg Documented by: Pregabalin (Pregabalin 150 Mg Cap) 300 mg PO PM [facility] Stop: 07/09/20 20:59 Last Admin: 06/10/20 20:07 Dose: 300 mg Documented by: Pregabalin (Pregabalin 150 Mg Cap) 150 mg PO DAILY [facility] Stop: 07/10/20 08:59 Last Admin: 06/11/20 08:55 Dose: 150 mg Documented by: Thiamine HCl (Thiamine Hcl 100 Mg Tab) 100 mg PO QAM [facility] Stop: 07/09/20 20:24 Last Admin: 06/11/20 08:49 Dose: 100 mg Documented by: (1) Anemia Anemia type: unspecified type Qualified Code(s): D64.9 - Anemia, unspecified
[2020-06-11] MEDS ORDERED: MIDAZOLAM HCL 5 MG/ML 1 ML VIAL ONE (13:19)
[2020-06-11] MEDS ORDERED: fentaNYL citrate 100 MCG/2 ML VIAL ONE ×2 (13:20→14:12)
[2020-06-11] MEDS ORDERED: BENZOCAIN/TETRACA/BUTAM SPRAY 200 APPLN/20 GM SPRY EXT ONE (13:34)
[2020-06-11] MEDS ORDERED: CANNULA ONE (13:36)
[2020-06-11] MEDS ORDERED: MIDAZOLAM HCL 1 MG/ML 2ML VIAL ONE ×2 (14:05→14:12)
--- NOTE | 2020-06-11 15:21 | Hospitalist Progress Note ---
Date of Service June 11, 2020 Assessment & Plan (1) Atrial fibrillation with rapid ventricular response: (2) Anemia: (3) Hypertension: (4) Alcohol abuse: (5) Recurrent sinusitis: (6) DVT prophylaxis: New onset atrial fibrillation with RVR on admission Worsening shortness of breath over the last few months History of atrial flutter not on any anticoagulation requiring cardioversion in the past History of small ostium secundum ASD Patient presents with worsening shortness of breath that has been going on for the last few weeks. Patient denies any chest pain. EKG with atrial fibrillation. Received IV Cardizem in the ED. Patient remains in a sinus rhythm. Cardiology was consulted. Time was made with cardioversion today however it failed. He is in atrial fibrillation. Concern for possible left atrial clot. Currently remains on heparin infusion. Plan to start possibly Coumadin. Continue with metoprolol tartrate 12.5 mg 3 times daily. Questionable lung capacity; concerning for Covid History of recurrent sinusitis History of aspiration pneumonitis History of asthma Patient was noted to have bilateral irregular groundglass opacities concerning for multifocal pneumonitis. He have had 3 Covid tests that have been negative. Denies any cough. No recent exposure to anyone who have had cough. Denies any recent travel anywhere. Patient does have history of bariatric surgery and reports he has had episodes of aspiration. Likely pneumonitis from that. Patient have had multiple episodes of sinusitis. Prior to admission patient was on the Levaquin for sinusitis episode. Urine concern for with possible aspiration, will start patient on Augmentin 5- day course. Continue with prednisone. Leukocytosis likely secondary to prednisone. Microcytic anemia Hemoglobin of 8.8 on admission. MCV of 70. Patient is a chronic alcohol drinker. Will give 1 dose of Venofer. Iron studies are peding. B12 and ferritin levels sufficient. Last colonoscopy on April 2020 with internal hemorrhoids. Alcohol abuse Continue CIWA protocol. Continue with thiamine/folic acid. Newly diagnosed diabetes mellitus type 2? HgA1c of 6.5. Will encourage lifestyle modifications. History of bariatric surgery in February 2013 History of fibromyalgia History of postlaminectomy syndrome Admission and Anticipated Discharge Date Admission Date: June 09, 2020 Subjective Patient was seen post cardioversion. Doing okay this morning. Her review of system is negative. Denies any chest pain, shortness of breath, palpitations or any dizziness. Dynamically doing fine. Her rate is under well controlled. Review of Systems Review of Systems: All systems reviewed & are unremarkable except as noted in HPI & below Physical Exam Physical Exam: General: A&Ox3 HENT: NCAT, MMM, EOMI Eyes: PERRLA Neck: Supple, normal range of motion CVS: normal rate and rhythm Resp: b/l rales appreciated Abdomen: Soft, nondistended and nontender Extremities: absence of any edema Neuro: no gross focal deficits appreciated Skin: warm and dry MSK: normal ROM, no joint swelling/erythema Results & Data Results & Data ([place]) Vital Signs (Past 12 Hours) Vital Signs Temp Pulse Pulse Resp BP BP Pulse Ox 06/11/20 14:45 81 16 136/83 93 06/11/20 14:30 82 16 131/82 91 06/11/20 14:25 80 17 166/87 H 99 06/11/20 14:20 83 17 135/82 98 06/11/20 14:15 82 17 126/75 99 06/11/20 14:10 82 17 122/78 97 06/11/20 14:05 84 17 134/80 97 06/11/20 14:00 84 17 152/84 H 98 06/11/20 13:55 84 17 157/97 H 100 06/11/20 13:50 80 17 148/109 H 100 06/11/20 12:56 37 C 80 16 141/80 H 96 06/11/20 12:03 36.6 C 84 18 138/9 L 94 06/11/20 08:45 36.7 C 85 18 154/91 H 94 06/11/20 04:46 36.7 C 68 20 134/88 95 06/11/20 04:00 91 H (1) Anemia Anemia type: unspecified type Qualified Code(s): D64.9 - Anemia, unspecified
[2020-06-11] MEDS ORDERED: IRON SUCROSE 200 MG in 0.9 % SODIUM CHLORIDE 100 ML IV ONE (16:00)
[2020-06-11] MEDS: AMOXICILLIN/CLAVULANATE 875 MG TAB PO SCH (17:15)
--- NOTE | 2020-06-11 17:52 | Communication Note ---
Date of Service: June 11, 2020 Unfortunately, BAN could not exclude left atrial appendage thrombus with 100% certainty, so, cardioversion was aborted. Continue IV heparin and initiate on warfarin 5 mg p.o. this evening. Ideally, would like to DC to home in the a.m. with Lovenox bridge and follow-up with our [place] clinic. We will plan on repeating BAN cardioversion in 1 month's time.
[2020-06-11] MEDS ORDERED: WARFARIN SOD 5 MG TAB PO ONE (18:15)
[2020-06-11] MEDS: OMEGA-3 (PURIFIED FISH OIL) 1 GM CAP PO SCH (20:27)
[2020-06-11] MEDS ORDERED: MILNACIPRAN HCL PO SCH (21:00)
[2020-06-12 07:01] LABS: Partial Thromboplastin Ratio 2.7
[2020-06-12 07:09] LABS: Partial Thromboplastin Time 76.7 Seconds (21.0-31.0)
[2020-06-12] MEDS: lisinopril 10 MG TAB PO SCH (08:46)
[2020-06-12] MEDS: FOLIC ACID 1 MG TAB PO SCH (08:47)
[2020-06-12] MEDS: METOPROLOL TARTRATE 25 MG TAB PO SCH (08:47)
[2020-06-12] MEDS: AMOXICILLIN/CLAVULANATE 875 MG TAB PO SCH (08:47)
[2020-06-12] MEDS: predniSONE 10 MG TABLET PO SCH (08:47)
[2020-06-12] MEDS: THIAMINE HCL 100 MG TAB PO SCH (08:47)
[2020-06-12] MEDS: PANTOprazole 40 MG TAB PO SCH (08:47)
[2020-06-12] MEDS: CEROVITE ADV FORMULA TAB PO SCH (08:47)
[2020-06-12] MEDS: PREGABALIN 150 MG CAP PO SCH (08:53)
[2020-06-12 09:36] LABS: INR 1.1 (0.9-1.1); Prothrombin Time 11.8 Seconds (9.0-12.0)
[2020-06-12 09:52] LABS: Albumin Level 2.5 gm/dl (3.4-5.0); BUN Creatinine Ratio 15.1 (10-20); Calcium 9.2 mg/dl (8.5-10.1); Creatinine Clr Calc Pharmacy 106.7 ml/min; Est GFR (African American) 112.9; Est GFR (Non-African American) 97.4; Potassium 3.3 mmol/L (3.5-5.1)
[2020-06-12 09:55] LABS: Albumin Globulin Ratio 0.6 (0.9-2); Bilirubin,Total 0.2 mg/dl (0.2-1); Total Protein 6.5 gm/dl (6.4-8.2)
[2020-06-12 09:58] LABS: Basophils # (auto) 0.03 K/uL (0-0.2); Basophils % (auto) 0.3 %; Eosinophils # (auto) 0.19 K/uL (0-0.5); Eosinophils % (auto) 1.7 %; Hematocrit (blood only) 31.3 % (42-52); Hemoglobin 9.5 g/dL (14.0-18.0); Immature Granulocytes % (auto) 1.8 %; Lymphocytes # (auto) 4.62 K/uL (1.2-3.4); Lymphocytes % (auto) 41.7 %; Mean Corpuscular Hemoglobin 20.9 pg (25-34); Mean Corpuscular Hgb Conc 30.4 g/dL (32-36); Mean Corpuscular Volume 68.9 fL (80-100); Mean Platelet Volume 9.7 fL (7.4-10.4); Monocytes # (auto) 0.63 K/uL (0.11-0.59); Monocytes % (auto) 5.7 %; Neutrophils # (auto) 5.41 K/uL (1.4-6.5); Neutrophils % (auto) 48.8 %; Nucleated RBC # (auto) 0.04 K/uL (0-0); Nucleated RBC % (auto) 0.3 %; Platelet Count 573 K/uL (130-400); RDW Coefficient of Variation 19.7 % (11.5-14.5); RDW Standard Deviation 49.5 fL (36.4-46.3); Red Blood Count 4.54 M/uL (4.7-6.1); White Blood Count 11.08 K/uL (4.8-10.8)
[2020-06-12] MEDS ORDERED: LOVENOX TEACHING KIT PRN (10:01)
[2020-06-12] MEDS ORDERED: POTASSIUM CHLORIDE CRTAB 20 MEQ TABCR PO ONE (10:15)
[2020-06-12] MEDS ORDERED: ENOXAPARIN 100 MG/1ML SYR SQ SCH (10:15)
[2020-06-12 10:41] LABS: Microcytosis Present; Polychromasia 1+
--- NOTE | 2020-06-12 13:15 | Discharge Summary ---
Date of Service June 12, 2020 Admission HPI Per Admitting Provider This is a 60-year-old male who has significant past medical history of HTN, ASD, asthma, fibromyalgia, post laminectomy syndrome, history of A. fib 10 years prior requiring DCCV and anticoagulation x1 year, recurrent sinusitis who presents to ED secondary to dyspnea on exertion x3 weeks. Of significance patient has been suffering from recurrent sinusitis since early February. He has been on multiple antibiotics including Levaquin x2 and Biaxin. He is currently on his second course of Levaquin day 2. He is also on his second round of prednisone. He complains of recurrent sinus congestion with purulent drainage with occasional scant blood, facial pain and pressure, postnasal drip, occasional cough secondary to drainage and ALMEIDA. Initially he attributed shortness of breath to nasal drainage. Shortness of breath started right around [place] when he would exert himself specifically with stairs. He would like himself extremely short of breath. He has been monitoring his heart rate and oxygen at home and noticed his oxygen to be low 90s and heart rate at times in 150s. He has been Covid screen x2 as outpatient which was negative. He denies any fever, chills, sweats, lightheadedness, dizziness, syncope, chest pain, palpitations, nausea, vomiting, abdominal pain, melena, hematochezia, diarrhea, dysuria, increased urgency or frequency with urination. He is not established with a keg inspector in the area. He follows with cardiology down near [place]. He states he has not had a recurrence of atrial fibrillation therefore did not feel the need. Of significance he does suffer from alc oholism. He drinks 2 [place] mules and 3 light beers daily. He was seen and evaluated in clinic today for follow-up regarding shortness of breath and sinusitis. His heart rhythm was found to be irregular and he was referred to ED. Admission Exam Per Admitting Provider onstitutional: WD/WN, vitals as above, NAD, sitting up in bed, pleasant, conversing easily Head: Normocephalic, Atraumatic Eyes: PERRL, conjunctivae normal, anicteric sclerae ENMT: external ear and nose normal, oropharynx normal Neck: trachea midline, no thyromegaly normal visual inspection Respiratory: normal respiratory effort, lungs clear to auscultation, no wheeze, rales, rhonchi. Normal insp/exp effort, no accessory muscle use Cardiovascular: RRR, no murmur, no edema Vessels: no JVD or carotid bruit Chest: normal inspection of chest Abdomen: normal bowel sounds, soft, nontender, no hepatosplenomegaly Musculoskeletal: no cyanosis or clubbing, extremities motor strength 5/5 Skin: no rashes, warm and dry normal turgor Neurologic: PERRL, EOMI, accommodation nl, no face palsy, no dysarthria CN's II-XI intact bilaterally and moves all extremities Psychiatric: A+Ox3, euthymic affect Lymphatic: no cervical or axillary lymphadenopathy : deferred Principal Diagnosis Atrial fibrillation Discharge Exam General: A&Ox3 HENT: NCAT, MMM, EOMI Eyes: PERRLA Neck: Supple, normal range of motion CVS: normal rate and rhythm Resp: b/l rales appreciated Abdomen: Soft, nondistended and nontender Extremities: absence of any edema Neuro: no gross focal deficits appreciated Skin: warm and dry MSK: normal ROM, no joint swelling/erythema Discharge Data Allergies Allergy/AdvReac Type Severity Reaction Status Date / Time adhesive tape Allergy Unknown Rash/Bliste Verified 06/09/20 17:38 rs atorvastatin AdvReac Unknown Cramping/We Verified 06/09/20 17:38 akness heparin AdvReac Unknown Hypotension Verified 06/09/20 17:38 Consultations 06/09/20 20:25 Consult Cardiology Routine Procedures Performed Operation Date: 06/11/20 12:30 Actual Procedures p Echo Transesophageal - DO pennie Carias Echo Color Flow - DO pennie Carias Doppler Echo Limited/Follow Up - Guillaume Royal DO Ordered Studies 06/09/20 18:44 CT chest diagnostic wo con Routine CT sinus wo con Routine Hospital Course (1) Atrial fibrillation with rapid ventricular response: New onset atrial fibrillation with RVR on admission Worsening shortness of breath over the last few months History of atrial flutter not on any anticoagulation requiring cardioversion in the past History of small ostium secundum ASD Patient presented with worsening shortness of breath that has been going on for the last few weeks. Patient denies any chest pain. EKG with atrial fibrillation. Received IV Cardizem in the ED. Cardiology was consulted. Cardioversion was attempted but it was unsuccessful. There was concern for possible left atrial appendage thrombus. Patient was started on heparin along with Coumadin. Was discharged with Lovenox/Coumadin. Patient will follow up with cardiology in 1 month for repeat cardioversion. 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 Questionable lung capacity; concerning for Covid History of recurrent sinusitis History of aspiration pneumonitis History of asthma Patient was noted to have bilateral irregular groundglass opacities concerning for multifocal pneumonitis. He have had 3 Covid tests that have been negative. Denies any cough. No recent exposure to anyone who have had cough. Denies any recent travel anywhere. Patient does have history of bariatric surgery and reports he has had episodes of aspiration. Likely pneumonitis from that. Patient have had multiple episodes of sinusitis. Prior to admission patient was on the Levaquin for sinusitis episode. Started patient on Augmentin 5-day course. Continue with prednisone. Leukocytosis likely secondary to prednisone. Microcytic anemia Hemoglobin of 8.8 on admission. MCV of 70. Patient is a chronic alcohol drinker. Iron studies are peding. B12 and ferritin levels sufficient. Last colonoscopy on April 2020 with internal hemorrhoids. Will up with primary care physician for further management. Newly diagnosed diabetes mellitus type 2? HgA1c of 6.5. Will encourage lifestyle modifications. History of bariatric surgery in February 2013 History of fibromyalgia History of postlaminectomy syndrom (2) Anemia: (3) Hypertension: (4) Alcohol abuse: (5) Recurrent sinusitis: Total Time Total Time Spent Total Time Spent (In Minutes): 35 Discharge Plan Discharge Items Patient Disposition: Home - Self-Care Reason For Visit: AFIB; ALCOHOLISM Discharge Diagnosis: Atrial fibrillation with rapid ventricular response Left atrial appendage thrombus Acute on chronic microcytic anemia Newly diagnosed diabetes mellitus type 2 Activity: Resume your previous activity Non-emergency contact: Primary Care Provider Call non-emergency contact if: your symptoms worsen Follow-up/Referrals: Johnathan Street MD [Primary Care Provider] - 06/17/20 10:00 am (Date & Time 06/17/2020 10:[address] Provider [address] MD Department Family [facility] ) Diet: Carb Consistent or DM2 Addtl Attending Provider Instructions: Follow-up with your primary care physician within the next 3 to 5 days. An appointment has been requested. You will need to be seen by cardiology in 1 month. An appointment has been requested. Continue with Lovenox shots twice daily along with Coumadin until you see your primary care physician. Take Augmentin for 5 more days. Take prednisone 40 mg daily for 2 more days. Pending Studies at Discharge: No Stand-Alone Forms: My [facility], Smoking Cessation Medications and DC Order Prescriptions: New prednisone 10 mg Tablet 40 mg PO DAILY Qty: 8 RF: 0 warfarin 5 mg Tablet 5 mg PO DAILY@1600 Qty: 30 RF: 0 amoxicillin-pot clavulanate [Augmentin] 875-125 mg Tablet 1 tab PO BIDM Qty: 14 RF: 0 enoxaparin 100 mg/mL Syringe 90 mg subcut Q12 Qty: 15 RF: 0 Continued oxycodone 15 mg tablet 15 mg PO Q4H PRN (Reason: Pain) RF: 0 metoprolol tartrate 25 mg tablet 12.5 mg PO QAM RF: 0 pregabalin [Lyrica] 150 mg capsule 150 mg PO DAILY RF: 0 Savella 50 mg tablet 100 mg PO HS RF: 0 lisinopril 20 mg tablet 10 mg PO QAM RF: 0 olopatadine 0.1 % drops 1 drp OPB BID RF: 0 lidocaine 5 % adhesive patch,medicated 3 patch topical DIRECTED RF: 0 budesonide 0.5 mg/2 mL suspension for nebulization 0.5 mg irrigation DAILY RF: 0 betamethasone dipropionate 0.05 % cream 1 applic TOPICAL BID PRN (Reason: Rosacea) RF: 0 albuterol sulfate 90 mcg/actuation HFA aerosol inhaler 2 puff INHALATION Q6H PRN (Reason: Cough/Wheezing) RF: 0 metronidazole 0.75 % Gel 1 applic TOPICAL BID PRN (Reason: Rosacea) RF: 0 Multivitamin 50 Plus Tablet 1 tab PO QAM RF: 0 omega-3 fatty acids Capsule 1,000 mg PO QPM RF: 0 esomeprazole magnesium [address] For Susp In Packet 20 mg PO DAILY RF: 0 pregabalin [Lyrica] 150 mg Capsule 300 mg PO PM RF: 0 Discontinued prednisone 20 mg tablet See Rx Instructions .ROUTE .COMPLEX RF: 0 levofloxacin 500 mg tablet 500 mg PO DAILY RF: 0 Discharge Orders: Discharge Order (Routine); Ordered 06/12/20 Ordered By: Valeriano Dyer/Other Patient Handouts: What to Know When TakingWarfarin, 5 Steps for Eating Healthier, Enoxaparin injection, A1C Admission Data Admit Date/Time: 06/09/20 17:44 Attending Provider: Valeriano Marquez Admit Provider: Martha Nuñez Primary Care Provider: Johnathan Street Other Providers: Guillaume Royal Other Interventions: Discharge Summary Assessment (RN) Last Done: 06/12/20 11:34
--- NOTE | 2020-06-12 13:31 | Electrocardiogram Report ---
Test Reason : Blood Pressure : / mmHG Vent. Rate : 081 BPM Atrial Rate : 324 BPM P-R Int : 000 ms QRS Dur : 082 ms QT Int : 350 ms P-R-T Axes : 061 046 033 degrees QTc Int : 406 ms Atrial flutter with 4:1 A-V conduction Abnormal ECG When compared with ECG of 09-JUN-2020 15:38, No significant change Confirmed by Hever Ortiz ([id number]) on 06/12/2020 1:30:54 PM Referred By: Johnathan Street Confirmed By:Hever Ortiz
--- NOTE | 2020-06-12 13:35 | Cardiology Progress Note ---
Date of Service June 12, 2020 Assessment & Plan (1) Atrial flutter with rapid ventricular response: (2) Recurrent sinusitis: (3) ASD (atrial septal defect): (4) Post laminectomy syndrome: (5) Anemia: Unfortunately, I cannot say with 100% assurance that no thrombus was present in the left atrial appendage Will require 1 month of anticoagulation and possible repeat BAN and then cardioversion should he remain in atrial flutter. Given the presence of thrombus Coumadin has been initiated and a Lovenox bridge will be started, appreciate primary team facilitating this. Will establish with our outpatient [facility] clinic Continue current dose of metoprolol. My office will call to set up follow-up with me in 1 month and further recommendations to be made at that time. Okay to discharge home from a cardiac standpoint. Admission and Anticipated Discharge Date Admission Date: June 09, 2020 Subjective Patient seen and examined, chart reviewed. States he has been feeling relatively well overnight with only slight palpitations occasionally. Denies chest pain, shortness of breath, lightheadedness, dizziness or syncope. Telemetry reviewed: Atrial flutter with variable AV block mostly 4-1 Review of Systems Review of Systems: All systems reviewed & are unremarkable except as noted in HPI & below Physical Exam Physical Exam: General: Awake, alert and oriented x 3. No acute distress. HEENT: Normocephalic, atraumatic. Pupils equal, round and reactive to light and accommodation. Extraocular muscles are intact. Anicteric sclera. Moist mucous membranes. Neck: No JVD. No bruit. Cardiovascular: irregularly irregular, unable to appreciate murmur, rub or gallop. Pulmonary: Clear to auscultation bilaterally. No rales, rhonchi, or wheezing. Abdomen: Bowel sounds x 4, soft. No rebound, guarding or tenderness. No organomegaly. Extremities: No clubbing, cyanosis or edema. +2 pedal pulses bilaterally. Skin: Warm and dry. Results & Data ([facility]) Vital Signs (Past 12 Hours) Vital Signs Temp Pulse Resp BP BP Pulse Ox 06/12/20 11:45 36.8 C 88 16 125/89 99 06/12/20 11:34 36.7 C 96 H 18 131/62 113/76 95 06/12/20 07:46 36.7 C 96 H 18 131/62 95 06/12/20 03:07 36.7 C 86 18 128/81 96 (1) Anemia Anemia type: unspecified type Qualified Code(s): D64.9 - Anemia, unspecified
[2020-06-12] MEDS ORDERED: WARFARIN SOD 5 MG TAB PO SCH (16:00)
--- NOTE | 2020-06-12 21:49 | Electrocardiogram Report ---
Test Reason : Blood Pressure : / mmHG Vent. Rate : 085 BPM Atrial Rate : 340 BPM P-R Int : 000 ms QRS Dur : 118 ms QT Int : 396 ms P-R-T Axes : 082 034 033 degrees QTc Int : 471 ms Atrial flutter with 4:1 A-V conduction Abnormal ECG When compared with ECG of 10-JUN-2020 11:48, (unconfirmed) No significant change Confirmed by Hever Ortiz ([id number]) on 06/12/2020 9:48:28 PM Referred By: Johnathan Street Confirmed By:Hever rOtiz
== END 2020-06-12 14:10 | disposition home or self-care (01) | DRG 308 ==
LOC: ED 15:25 → 2S 17:44 → SUATTDRO 17:44 → 2S 19:58